=== PATIENT | female | born 1940 | race Caucasian/White ===

== ENCOUNTER 2024-01-27 06:08 | Emergency (ER) | payer MEDICARE, BC, SELFPAY ==
[2024-01-27 06:26] VITALS: PULSE 61; RESP 18; O2SAT 97
[2024-01-27 06:33] VITALS: BMI 28.3
[2024-01-27 06:39] VITALS: BP 139/91; PULSE 63; RESP 16; TEMP 36.7; O2SAT 95
--- NOTE | 2024-01-27 06:51 | PD.EDABDPN ---
ED Abdominal Pain RME/HPI General Chief Complaint: Abdominal Pain Stated complaint: Rash/ABD PAIN Time seen by provider: 01/27/24 06:44 Arrival date/time: 01/27/24 06:08 RME / HPI RME / HPI narrative: Patient is a 84 year old female presenting to the ED BIBA for reported abdominal pain x5 days. Patient also complains of nonspecific rash to her abdomen x5 days. Denies fevers, chills, nausea,vomiting, diarrhea, constipation, urinary symptoms. History includes hypertension. Related Data Home Medications ?Medication ?Instructions ?Recorded ?Confirmed gabapentin 100 mg capsule 100 mg PO TID 05/15/23 07/11/23 hydrocodone 5 mg-acetaminophen 325 1 tab PO BID PRN Pain (Scale Score 05/15/23 07/11/23 mg tablet 7-10) levothyroxine 75 mcg tablet 75 mcg PO QDAY 05/15/23 07/11/23 aspirin 81 mg tablet,delayed 81 mg PO DAILY 05/16/23 07/11/23 release clopidogrel 75 mg tablet 75 mg PO DAILY 05/16/23 07/11/23 ezetimibe 10 mg tablet (Zetia) 10 mg PO DAILY 05/16/23 07/11/23 carvedilol 3.125 mg tablet 3.125 mg PO QDAY 07/11/23 07/11/23 valsartan 40 mg tablet 40 mg PO QDAY 07/11/23 07/11/23 Allergies Allergy/AdvReac Type Severity Reaction Status Date / Time Penicillins Allergy Unknown Verified 07/11/23 11:35 sulfamethoxazole Allergy Unknown Verified 07/11/23 11:35 trimethoprim Allergy Unknown Verified 07/11/23 11:35 celecoxib AdvReac Intermediate Anxiety Verified 07/11/23 11:35 pregabalin AdvReac Intermediate Irritable Verified 07/11/23 11:35 Review of Systems Review of Systems Narrative Review of Systems: Gen: No fever, no chills, no weight loss EYES: No discharge, no visual changes, no pain HEENT: No ear pain, no congestion, no sore throat PULM: No shortness of breath, no cough, no congestion CV: No chest pain, no dyspnea on exertion, no palpitations GI: +pain. No nausea, no vomiting, no diarrhea,no constipation : No frequency, no urgency, no dysuria Musc/skel: No joint pain, no back pain Skin: + rash Psyc: No hallucinations, no depression Heme/Lymph: No easy bleeding or bruising tendencies Neuro: No weakness, no headache Past Medical History Past Medical History NEUROLOGIC: Positive Neurological Disorders and Peripheral Neuropathy CARDIAC: Positive Cardiac Disorders, Coronary Artery Disease, Hypercholesterolemia, Edema and Hypertension RESPIRATORY: Positive Asthma GASTROINTESTINAL: Positive Gastrointestinal Disorders, Gastroesophageal Reflux Disease and Obesity GENITOURINARY: Positive Genitourinary Disorders REPRODUCTIVE: Positive Breast Cancer MUSCULOSKELETAL: Positive Musculoskeletal Disorders, Arthritis, Rheumatoid Arthritis, Carpal Tunnel Syndrome and Fibromyalgia ENDOCRINE: Positive Endocrine Disorders and Hypothyroidism PSYCHO/SOCIAL: Positive Depression and Anxiety OTHER HISTORY: Positive Cancer and Breast Cancer Surgical History SURGICAL: Positive Thyroidectomy, Joint Replacement and Hysterectomy Social History SMOKING STATUS: Never smoker SUBSTANCE USE: does not use ED Exam Narrative Physical exam: GEN. APPEARANCE: The patient is alert awake oriented X-3 in minimal distress, lying down comfortably, does not look ill/toxic. Patient has good eye contact. Patient is cooperative. VITALS: All vitals were reviewed and the pulse ox is 95% on room air which is normal according to my interpretation. HEENT: Normocephalic, atraumatic. Pupils are equal and reactive. Oral mucosa is moist. Patent Nares NECK: Supple, nontender, no thyromegaly, no meningismus, no JVD, no step offs CHEST: Symmetrical, atraumatic, and with equal expansion , Nontender on palpation no deformity and no crepitus. CARDIOVASCULAR: Heart regular rhythm no murmur or gallop rub or extra beats. LUNGS: Clear to auscultation bilaterally with symmetrical chest rise. No laboring tachypnea or wheezing. No intercostal subcostal retraction. No rales and no rhonchi. ABDOMEN: Soft, flat, nontender to palpation, no guarding or rebound tenderness. There are no abnormal masses palpated. Active and normal bowel sounds. EXTREMITIES: Nontender. No edema. No cyanosis. Patient is able to move all 4 extremities well, with full ROM and good CSM. SKIN: patchy Rash on the right abdomen stretching onto the back, shingles. Warm and dry, no jaundice o MUSCULOSKELETAL: No lubar or midline bony tenderness. There is no CVA tenderness. No paraspinal muscle spasm or tenderness. NEURO: Patient is NUNES x 4, Cranial nerves II through XII grossly intact. There is no focal neurologic deficits noted. GCS is 15, PNS and [employer] appear grossly intact. PSYCHIATRIC: Patient is in normal mood and affect, cooperative, no SI or HI or hallucinations. Course Quality Measures none Vital Signs Vital signs: Vital Signs Temperature 98.0 F 01/27/24 06:39 Pulse Rate 63 01/27/24 06:39 Respiratory Rate 16 01/27/24 06:39 Blood Pressure 139/91 H 01/27/24 06:39 Pulse Oximetry (%) 95 01/27/24 06:39 Oxygen Delivery Method Room Air 01/27/24 06:39 Abdominal Pain MDM Patient data External records reviewed:: [facility] previous records and EMS form Clinical information provided by:: patient Social determinants that could affect healthcare access:: none Patient has the following chronic illnesses:: hypertension How is presenting disease/condition affected by chronic disease/condition?: uneffected by Evaluation data The following diagnostics were reviewed and interpreted by me:: other (specify) (no testing currently indicated.) Lab and/or radiology exams considered but not ordered:: Basic lab work Interpretation Summary: No testing currently indicated. Medications / Prescriptions Medications or Prescriptions considered but not ordered:: none Medication administrations:: see above Consultations Consultation(s) initiated? (list below): No Diagnosis Differential diagnosis abdominal pain: other (shingles) Most likely diagnosis given after review of the tests above:: shingles Admission Indicated Admission indicated?: not indicated Admission Request Was there a request for admission?: No Disposition Plan Disposition Plan: Discharge Discharge Attestation Discharge Attestation: The patient and all family members were given an opportunity to ask questions and understood the discharge instructions. Discharge instructions specifically effects, indications for sooner follow up or return to the emergency department, and the expected course of current diagnosis. Patient condition: Stable Discharge Plan Plan Patient Disposition: HOME (Self Care) Patient condition on transfer: Stable Prescriptions/Referrals Prescriptions/Med Rec: No Action valsartan 40 mg tablet 40 mg PO QDAY carvedilol 3.125 mg tablet 3.125 mg PO QDAY Rx Instructions: must administer with a meal/food hydrocodone-acetaminophen 5-325 mg Tablet 1 tab PO BID PRN (Reason: Pain (Scale Score 7-10)) levothyroxine 75 mcg Tablet 75 mcg PO QDAY gabapentin 100 mg Capsule 100 mg PO TID clopidogrel 75 mg tablet 75 mg PO DAILY Patient Comments: TAKE 1 TABLET BY MOUTH EVERY DAY aspirin 81 mg tablet,delayed release (DR/EC) 81 mg PO DAILY ezetimibe [Zetia] 10 mg Tablet 10 mg PO DAILY Problem List Clinical Impression: Acute herpes zoster neuropathy, Shingles rash Patient/Caregiver Discharge Instructions Education Materials: ED Shingles (Herpes Zoster) Print Language: Urdu Stand Alone Forms: Nilda Award Info., Patient Portal Info Letter
== END 2024-01-27 07:30 | disposition home or self-care (01) ==
LOC: SERX 07:41
PROVIDERS: Emergency Provider Emergency Medicine
DX: B02.29 Other postherpetic nervous system involvement (principal)
CPT/HCPCS: 99281

== ENCOUNTER → 2024-08-14 | Outpatient (CLI) | payer MEDICARE, SELFPAY ==
--- NOTE | 2024-08-14 12:06 | XR_ITS ---
Examination: Right knee 2 views Technique one AP lateral right knee 2 views Date and time: August 14, 2024 1213 hours INDICATIONS: Knee pain 3 years. FINDINGS: Severe osteopenia Advanced tricompartment osteoarthritis including severe narrowing medial joint space, [id number] No fracture Moderate knee effusion IMPRESSION: Advanced tricompartment osteoarthritis
== END | disposition home or self-care (01) ==
PROVIDERS: PCP Registered Nurse; Referring Provider Registered Nurse; Visit Provider Registered Nurse
DX: M17.11 Unilateral primary osteoarthritis, right knee (principal)
CPT/HCPCS: 73560

== ENCOUNTER → 2024-09-02 | Outpatient (CLI) | payer MEDICARE, BC, SELFPAY ==
--- NOTE | 2024-09-02 13:10 | XR_ITS ---
Examination: Venous duplex lower extremity sonogram, bilateral. Date and time of exam: September 02, 2024 1431 hours INDICATIONS: Bilateral leg filling and pain beginning several years ago Technique: Multiple sonographic images of the deep venous system have been obtained. B-mode/2-D grayscale imaging of vascular structures and Doppler spectral analysis (waveforms) and color performed Both legs are examined. Findings: Deep venous systems do not demonstrate abnormal echogenicity. All visualized deep veins exhibit compressibility. All visualized deep veins exhibit augmentation. Impression: Negative for deep vein thrombosis
== END | disposition home or self-care (01) ==
PROVIDERS: PCP Family Medicine; Referring Provider Internal Medicine; Visit Provider Internal Medicine
DX: M79.605 Pain in left leg (principal); M79.604 Pain in right leg
CPT/HCPCS: 93970

== ENCOUNTER → 2024-10-17 | Outpatient (CLI) | payer MEDICARE, BC, SELFPAY ==
--- NOTE | 2024-10-17 12:07 | XR_ITS ---
Examination: Ribs, right, with PA chest, 5 views Technique: Chest PA, RIBS AP, RPO, LPO, AP coned lower ribs 5 views Exam date and time: October 17, 2024 1357 hours INDICATIONS: Injury to the right chest one week ago with right rib pain Findings: Severe thoracic levoscoliosis Partial visualization thoracic lumbar transpedicular orthopedic hardware Surgical clips over the left chest No pneumothorax Severe osteopenia Reverse right shoulder arthroplasty No acute rib fractures IMPRESSION: No pneumothorax No acute right rib fractures
[2024-10-17 15:24] LABS: Collection Type, Urine Clean Catch
[2024-10-17 16:36] LABS: Bilirubin,Urine Negative (Negative); Blood,Urine Negative (Negative); Clarity,Urine Clear (Clear/Hazy); Color,Urine Yellow (Lt Yel-Yel); Glucose, Urine Negative (Negative); Ketones,Urine 1+ (Negative); Leukocyte Esterase,Urine Negative (Negative); Nitrite,Urine Negative (Negative); PH,Urine 7.0 (5.0-7.0); Protein,Urine 2+ (Neg - Trace); RBC,Urine 17 /hpf (0-3); Specific Gravity,Urine 1.027 (1.001-1.035); Squamous Epithelial Cell,Urine 1 /hpf (0-5); Urobilinogen,Urine Negative mg/dL (0.0-1.0); WBC,Urine 1 /hpf (0-5)
== END | disposition home or self-care (01) ==
LOC: SDIM 14:40 → SLDO 15:30
PROVIDERS: PCP Family Medicine; Referring Provider Family Medicine; Visit Provider Radiology Diagnostic Radiology
DX: R07.82 Intercostal pain (principal); R07.81 Pleurodynia; N39.0 Urinary tract infection, site not specified
CPT/HCPCS: 71101; 81001; 87086

== ENCOUNTER 2024-10-18 16:27 | Emergency (ER) | payer MEDICARE, BC, SELFPAY ==
--- NOTE | 2024-10-18 16:42 | PD.EDAMS ---
Altered Mental Status RME/HPI General Chief Complaint: Weakness Stated Complaint: WEAKNESS Time Seen by Provider: 10/18/24 16:46 Arrival date/time: 10/18/24 16:27 Limitations: no limitations RME / HPI RME / HPI narrative: DR. VIDYA JENKINS ED EVALUATION: 84-year-old female with history of aortic valve blockage, pending valve replacement surgery that was postponed due to a recent infection, and possible undiagnosed dementia, presents to the Emergency Department [facility] for altered behavior and generalized weakness. Family reports that at night the patient becomes combative and screams, and when they attempt to move her, she cries out in pain. They also describe episodes of unusual behavior, such as drinking from a bottle of Tylenol, and being awake and altered from 1 AM to 7 AM, with no memory of these events afterward. EMS reports hypertension on arrival with otherwise normal vitals. The patient takes gabapentin, Zyrtec, and amitriptyline. On evaluation, she stated, I?m tired of all this garbage, I want to go home ; but denies suicidal ideation. She denies any pain, dysuria, or other complaints. Related Data Home Medications ?Medication ?Instructions ?Recorded ?Confirmed gabapentin 100 mg capsule 100 mg PO TID 05/15/23 07/11/23 hydrocodone 5 mg-acetaminophen 325 1 tab PO BID PRN Pain (Scale Score 05/15/23 07/11/23 mg tablet 7-10) levothyroxine 75 mcg tablet 75 mcg PO QDAY 05/15/23 07/11/23 aspirin 81 mg tablet,delayed 81 mg PO DAILY 05/16/23 07/11/23 release clopidogrel 75 mg tablet 75 mg PO DAILY 05/16/23 07/11/23 ezetimibe 10 mg tablet (Zetia) 10 mg PO DAILY 05/16/23 07/11/23 carvedilol 3.125 mg tablet 3.125 mg PO QDAY 07/11/23 07/11/23 valsartan 40 mg tablet 40 mg PO QDAY 07/11/23 07/11/23 Allergies Allergy/AdvReac Type Severity Reaction Status Date / Time morphine Allergy Severe Agitated Verified 10/18/24 18:56 Penicillins Allergy Unknown Verified 10/18/24 18:56 sulfamethoxazole Allergy Unknown Verified 10/18/24 18:56 trimethoprim Allergy Unknown Verified 10/18/24 16:38 celecoxib AdvReac Intermediate Anxiety Verified 10/18/24 16:38 pregabalin AdvReac Intermediate Irritable Verified 10/18/24 16:38 Review of Systems Review of Systems Systems Reviewed: All systems reviewed, normal except as documented Past Medical History Past Medical History NEUROLOGIC: Positive Neurological Disorders and Peripheral Neuropathy CARDIAC: Positive Cardiac Disorders, Coronary Artery Disease, Hypercholesterolemia, Edema and Hypertension RESPIRATORY: Positive Asthma GASTROINTESTINAL: Positive Gastrointestinal Disorders, Gastroesophageal Reflux Disease and Obesity GENITOURINARY: Positive Genitourinary Disorders REPRODUCTIVE: Positive Breast Cancer MUSCULOSKELETAL: Positive Musculoskeletal Disorders, Arthritis, Rheumatoid Arthritis, Carpal Tunnel Syndrome and Fibromyalgia ENDOCRINE: Positive Endocrine Disorders and Hypothyroidism PSYCHO/SOCIAL: Positive Depression and Anxiety OTHER HISTORY: Positive Cancer and Breast Cancer Surgical History SURGICAL: Positive Thyroidectomy, Joint Replacement and Hysterectomy Social History SMOKING STATUS: Never smoker SUBSTANCE USE: does not use ALCOHOL: Never ED Exam General Limitations: Present no limitations General appearance: Present alert and in no apparent distress Head Head exam: Present atraumatic, normocephalic and normal inspection Eye Eye exam: Present normal appearance, PERRL and EOMI ENT ENT exam: Present normal exam, normal oropharynx and mucous membranes moist Neck Neck exam: Present normal inspection, full ROM and trachea midline Chest Chest inspection: Present normal inspection and symmetric chest wall rise Respiratory Respiratory exam: Present normal lung sounds bilaterally Cardiovascular Cardiovascular exam: Present regular rate, normal rhythm and normal heart sounds Abdominal Exam Abdominal exam: Present soft and normal bowel sounds Extremities Exam Extremities exam: Present normal inspection and full ROM Back Exam Back exam: Present normal inspection and full ROM Neurological Exam Neurological exam: Present alert, oriented X3 and CN II-XII intact Psychiatric Psychiatric exam: Present normal affect and normal mood Skin Skin exam: Present warm, dry, intact and normal color Course Course Course Narrative: Patient is an 84-year-old female who presented to the emergency department via EMS after family called for what sounds like episodes of sundowning. Per family the patient awakens every night at about 1 AM and is confused and anxious and performs strange tasks around the house. She is otherwise alert and oriented x 3. Patient has no medical complaints. Patient's exam is normal for elderly female. Patient appears somewhat perturbed. Patient remained stable throughout her course in the emergency department and care was turned over to Dr. Gao at 6 PM pending results of the workup. Quality Measures none Orders Category Date Time Status EKG (ED ONLY) *Do not use* NOW Care 10/18/24 16:47 Completed Insert IV NOW Care 10/18/24 16:[address] head/brain wo con Stat Exams 10/18/24 16:48 Completed EKG (ED Only) Stat Exams 10/18/24 16:46 Draft XR chest 1V portable Stat Exams 10/18/24 16:48 Completed Alcohol, Blood Medical Stat Lab 10/18/24 17:04 Completed Ammonia Stat Lab 10/18/24 17:04 Completed Blood Culture (Lab) Stat Lab 10/18/24 17:09 Received CBC Stat Lab 10/18/24 17:04 Completed Comprehensive Metabolic Panel Stat Lab 10/18/24 17:04 Completed Drug Screen,Urine Stat Lab 10/18/24 17:46 Completed Magnesium Stat Lab 10/18/24 17:04 Completed Prothrombin Time with INR Stat Lab 10/18/24 17:04 Completed Salicylate Stat Lab 10/18/24 17:04 Completed Thyroid Stimulating Hormone Stat Lab 10/18/24 17:04 Completed Troponin I Stat Lab 10/18/24 17:04 Completed Urinalysis, C/S if Indicated Stat Lab 10/18/24 17:46 Completed Acetaminophen Tab [Tylenol ES Tab] Med 10/18/24 17:43 Discontinued 1,000 mg PO X1 ONE HYDROcodone*/APAP 5/325 [[place] 5/325] Med 10/18/24 19:48 Discontinued 1 tab PO X1 ONE Morphine Inj Med 10/18/24 18:36 Discontinued 2 mg IVP X1 ONE Vital Signs Vital signs: Vital Signs Temperature 98.2 F 10/18/24 16:48 Pulse Rate 68 10/18/24 16:48 Respiratory Rate 18 10/18/24 16:48 Blood Pressure 177/78 H 10/18/24 16:48 Pulse Oximetry (%) 95 10/18/24 16:48 Oxygen Delivery Method Room Air 10/18/24 16:48 Altered Mental Status MDM Narrative MDM Narrative:: I, Katiuska Pascal am scribing for and in the presence of Dr. Gonzalez. Patient data External records reviewed:: [facility] previous records and EMS form Clinical information provided by:: patient, EMS and family Social determinants that could affect healthcare access:: none Patient has the following chronic illnesses:: aortic valve blockage, pending valve replacement surgery that was postponed due to a recent infection, and possible undiagnosed dementia How is presenting disease/condition affected by chronic disease/condition?: exacerbated by Evaluation data The following diagnostics were reviewed and interpreted by me:: lab results, radiology exam(s) and EKG tracing(s) Lab and/or radiology exams considered but not ordered:: none Interpretation Summary: Pending at sign out. Medications / Prescriptions Medications or Prescriptions considered but not ordered:: none Medication administrations:: Medication Administration History Discontinued Medications Acetaminophen (Acetaminophen 500 Mg Tablet) 1,000 mg PO X1 ONE Stop: 10/18/24 17:44 Last Admin: 10/18/24 17:52 Dose: 1,000 mg Documented By: CHAVEZ Hydrocodone Bitart/Acetaminophen (Hydrocodone/Apap 5/325 Tablet) 1 tab PO X1 ONE Stop: 10/18/24 19:49 Last Admin: 10/18/24 20:24 Dose: 1 tab Documented By: SWAPNA Morphine Sulfate (Morphine Sulf Inj 10 Mg/Ml Vial) 2 mg IVP X1 ONE Stop: 10/18/24 18:37 Last Admin: 10/18/24 18:57 Dose: Not Given Documented By: CHAVEZ Non-Admin Reason: Allergy Comments: NOT GIVEN PATIENT IS ALLERGIC see above if any Consultations Consultation(s) initiated? (list below): No Diagnosis Differential diagnosis altered mental status: other (Delirium, dementia with behavioral disturbance, and metabolic or medication-induced encephalopathy.) Most likely diagnosis given after review of the tests above:: No official diagnoses at this time, still pending diagnostic tests. Patient signout to the twisting department end finder provider. Admission Indicated Admission indicated?: not indicated Explain why admission is indicated or not indicated:: No final disposition plan at this time, still pending diagnostic tests. Patient signout to the twisting department end finder provider. Admission Request Was there a request for admission?: No Disposition Plan Disposition Plan: other (specify) (Patient signed out to Dr. Gao, pending CXR, EKG, head CT, labs, and final disposition. ) Discharge Plan Plan Patient Disposition: HOME (Self Care) Prescriptions/Referrals Prescriptions/Med Rec: No Action valsartan 40 mg tablet 40 mg PO QDAY carvedilol 3.125 mg tablet 3.125 mg PO QDAY Rx Instructions: must administer with a meal/food hydrocodone-acetaminophen 5-325 mg Tablet 1 tab PO BID PRN (Reason: Pain (Scale Score 7-10)) levothyroxine 75 mcg Tablet 75 mcg PO QDAY gabapentin 100 mg Capsule 100 mg PO TID clopidogrel 75 mg tablet 75 mg PO DAILY Patient Comments: TAKE 1 TABLET BY MOUTH EVERY DAY aspirin 81 mg tablet,delayed release (DR/EC) 81 mg PO DAILY ezetimibe [Zetia] 10 mg Tablet 10 mg PO DAILY Referrals: No Primary/Family,Physician [Primary Care Provider] - In 1 week Problem List Clinical Impression: AMS (altered mental status) Patient/Caregiver Discharge Instructions Additional Instructions: Patient may be suffering from early signs of dementia. Follow-up with the patient's doctor for further treatment and evaluation. There is no sign of a urinary tract infection. Print Language: British Stand Alone Forms: Nilda Award Info., Patient Portal Info Letter
--- NOTE | 2024-10-18 16:46 | EKG_ITS ---
[facility] Test Date: 2024-10-18 Pat Name: JEREMIAH ANN Department: Room: - Gender: Female Form Building Supervisor: : 1940 Requested By: Claus Zelaya Order Number: [id number] Reading MD: Claus Zelaya Measurements Intervals [place] Rate: 65 P: 46 GA: 158 QRS: -2 QRSD: 108 T: 29 QT: 425 QTc: 444 Interpretive Statements SINUS RHYTHM POSSIBLE LEFT VENTRICULAR HYPERTROPHY [VOLTAGE CRITERIA PLUS LAE OR QRS WIDENING] Compared to ECG 05/20/2023 17:19:09 No significant changes /store/S0/[id number]/[id number].pdf
[2024-10-18 16:48] VITALS: BP 177/78; PULSE 68; RESP 18; TEMP 36.8; O2SAT 95
--- NOTE | 2024-10-18 16:48 | XR_ITS ---
Examination: CT brain head without contrast. 2-D sagittal coronal reconstructions Date and time of exam:October 18, 2024, 1759 hours, comparison May 15, 2023. INDICATIONS: Altered mental status today CTDI: vol (mGy):44.9. DLP: (mGycm):879 Technique: Multiple CT axial sections of the brain have been obtained, 5 mm slice thickness. Contrast has not been administered. 2-D sagittal, coronal reconstructions have been obtained Low dose protocols were performed. One or more of the following dose reduction techniques were used; automated exposure control, adjustment of the mA and/or KV according to patient size, use of iterative reconstruction technique. Findings: No significant ventricular enlargement. Intra-axial or extra-axial hemorrhage density is not seen. No mass effect or midline shift Basal cisterns are not remarkable. Fourth ventricle is midline. Cranial vault intact. Impression: Negative for acute hemorrhage, mass effect or midline shift Advise clinical correlation and follow up accordingly.
--- NOTE | 2024-10-18 16:48 | XR_ITS ---
Examination: AP chest single view TECHNIQUE: AP portable semiupright chest single view. Date and time: October 18, 2024, 1747 hours, comparison October 17, 2024 INDICATIONS: Weakness altered mental status today. FINDINGS: No significant cardiac enlargement. No aspiration pneumonia. Prominent osteopenia. Left axillary surgical clips. Bilateral reverse shoulder arthroplasties. IMPRESSION: No aspiration pneumonia No pulmonary edema
[2024-10-18 17:47] LABS: Ammonia < 10 uMol/L (11-32)
[2024-10-18] MEDS: ACETAMINOPHEN 500 MG TABLET 1000 MG PO (17:52)
[2024-10-18 17:58] LABS: Collection Type, Urine Catheter; Squamous Epithelial Cell,Urine 0 /hpf (0-5)
[2024-10-18 18:04] LABS: Basophils # (Auto) 0.0 Thou/mm3 (0.0-0.2); Basophils % (Auto) 0 % (0-2.5); Eosinophils # (Auto) 0.2 Thou/mm3 (0.0-0.5); Eosinophils % (Auto) 2 % (0-10); Hematocrit 32.1 % (36.0-46.0); Hemoglobin 10.2 g/dL (12.0-16.0); Immature Granulocytes Auto 0.04 Thou/mm3 (0.00-0.00); Lymphocytes # (Auto) 1.5 Thou/mm3 (1.0-4.8); Lymphocytes % (Auto) 17 % (10-50); Mean Corpuscular HGB Conc 31.8 g/dl (31.0-37.0); Mean Corpuscular Hemoglobin 28.6 pg (25.0-35.0); Mean Corpuscular Volume 90 fL (80-100); Monocytes # (Auto) 1.1 Thou/mm3 (0.0-0.8); Monocytes % (Auto) 13 % (0-12); Neutrophils # (Auto) 5.9 Thou/mm3 (1.8-7.7); Neutrophils % (Auto) 68 % (37-80); Nucleated Red Blood Cell # 0.00 Thou/mm3 (0.00-0.00); Nucleated Red Blood Cell % 0 /100 WBC (0); Platelet Count 280 Thou/mm3 (140-440); RDW Standard Deviation 47.5 fL (36.4-46.3); Red Blood Count 3.57 Miln/mm3 (4.00-5.20); White Blood Count 8.8 Thou/mm3 (3.6-11.0)
[2024-10-18 18:22] VITALS: BP 204/101; PULSE 67; RESP 18; TEMP 36.7; O2SAT 95
[2024-10-18 18:24] LABS: Alanine Aminotransferase 35 U/L (10-49); Albumin, Serum 4.1 gm/dL (3.4-4.8); Albumin/Globulin Ratio 2.0 (1.2-2.2); Alcohol, Blood Medical < 3.0 mg/dL (0-10.0); Alkaline Phosphatase 98 U/L (46-116); Anion Gap 11 (7-16); Aspartate Amino Transferase 31 U/L (0-34); BUN/Creatinine Ratio 33 Ratio (12-20); Bilirubin,Total 0.4 mg/dL (0.3-1.2); Blood Urea Nitrogen 26 mg/dL (9-23); Calcium 9.9 mg/dL (8.3-10.6); Calcium (Corrected) 9.9 mg/dL (8.5-10.1); Carbon Dioxide 28.4 mMol/L (20.0-31.0); Chloride 101 mMol/L (98-107); Creatinine (Component) 0.8 mg/dL (0.6-1.3); Globulin 2.1 gm/dL (2.3-3.5); Glucose 137 mg/dL (74-106); Magnesium 2.2 mg/dL (1.6-2.6); Osmolality,Calculated 286 (275-295); Potassium 4.0 mMol/L (3.4-5.1); Salicylate < 3.0 mg/dL; Sodium 140 mMol/L (136-145); Thyroid Stimulating Hormone 1.90 uIU/mL (0.55-4.78); Total Protein 6.2 gm/dL (5.7-8.2); Troponin I < 0.020 ng/mL (0.0-0.045); eGFR > 60 See Note
--- NOTE | 2024-10-18 18:28 | PD.EDADDENDU ---
Emergency Room Addendum <Ally Manzanares - Last Filed: 10/18/24 19:20> Addendum Narrative: 1800: Care assumed from Dr. Gonzalez (emergency physician). Past medical, surgical, social and family history reviewed. Vitals and home medications reviewed. Results and treatment plan discussed. I will assume the care of the patient at this time and will follow the patient, pending labs and head/brain CT. The following addendum documentation note is intended to reflect any pending information, findings, or radiology results not included in the patient?s initial chart by the previous shift scribe. RADIOLOGY Head/Brain CT: Findings: No significant ventricular enlargement. Intra-axial or extra-axial hemorrhage density is not seen. No mass effect or midline shift Basal cisterns are not remarkable. Fourth ventricle is midline. Cranial vault intact. Impression: Negative for acute hemorrhage, mass effect or midline shift. Advise clinical correlation and follow up accordingly. <Tee Fernandez DO [place] - Last Filed: 10/18/24 20:24> Addendum Narrative: 1800: Care assumed from Dr. Gonzalez (emergency physician). Past medical, surgical, social and family history reviewed. Vitals and home medications reviewed. Results and treatment plan discussed. I will assume the care of the patient at this time and will follow the patient, pending labs and head/brain CT. The following addendum documentation note is intended to reflect any pending information, findings, or radiology results not included in the patient?s initial chart by the previous shift scribe. RADIOLOGY Head/Brain CT: Findings: No significant ventricular enlargement. Intra-axial or extra-axial hemorrhage density is not seen. No mass effect or midline shift Basal cisterns are not remarkable. Fourth ventricle is midline. Cranial vault intact. Impression: Negative for acute hemorrhage, mass effect or midline shift. Advise clinical correlation and follow up accordingly. I interpreted and evaluated the labs. CAT scan of the brain was negative. Had a long discussion with the patient's daughter. 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 I believe the patient may be suffering from early signs of dementia. She does have a neurologist. Family will follow-up with neurology to seek appropriate treatment. Patient is stable for discharge. Patient does not have a urinary tract infection.
[2024-10-18 18:33] LABS: INR 1.0 (0.9-1.3); Prothrombin Time 11.4 Seconds (9.0-12.2)
[2024-10-18 18:36] VITALS: BMI 28.9
[2024-10-18 18:44] VITALS: PULSE 80; RESP 19; O2SAT 98
[2024-10-18 18:54] LABS: Amphetamine/Methamp Scrn,U Negative (Negative); Barbiturate Screen,Urine Negative (Negative); Benzodiazepines Screen,Urine Negative (Negative); Benzoylecgonine Screen, Ur Negative (Negative); Fentanyl Screen,Urine Negative (Negative); Opiate Screen,Urine Positive (Negative); THC Screen,Urine Negative (Negative)
[2024-10-18 18:58] VITALS: BP 186/91; PULSE 70; RESP 19; O2SAT 96
[2024-10-18 19:11] LABS: Bilirubin,Urine Negative (Negative); Blood,Urine Negative (Negative); Clarity,Urine Clear (Clear/Hazy); Color,Urine Yellow (Lt Yel-Yel); Culture Indicated,Urine Not Indicated; Glucose, Urine Negative (Negative); Ketones,Urine Negative (Negative); Leukocyte Esterase,Urine Negative (Negative); Nitrite,Urine Negative (Negative); PH,Urine 6.5 (5.0-7.0); Protein,Urine 2+ (Neg - Trace); RBC,Urine 20 /hpf (0-3); Specific Gravity,Urine 1.033 (1.001-1.035); Urobilinogen,Urine Negative mg/dL (0.0-1.0); WBC,Urine 1 /hpf (0-5)
--- NOTE | 2024-10-18 19:37 | PC.NURSE ---
PT WAS CHANGED AND CLEANED AFTER BEING SOILED
[2024-10-18] MEDS: HYDROcodone/APAP 5/325 TABLET 1 TAB PO (20:24)
[2024-10-18 20:25] VITALS: BP 186/91; PULSE 72; RESP 20; TEMP 36.9; O2SAT 97
== END 2024-10-18 20:59 | disposition home or self-care (01) ==
PROVIDERS: Emergency Provider Emergency Medicine
DX: R41.82 Altered mental status, unspecified (principal); R53.1 Weakness; I10 Essential (primary) hypertension
CPT/HCPCS: 36415; 70450; 71045; 80053; 80307; 80320; 80329; 81001; 82140; 83735; 84443; 84484; 85025; 85610; 87040; 93005; 99283; A9270; G0480

== ENCOUNTER → 2024-10-24 | Outpatient (CLI) | payer MEDICARE, BC, SELFPAY ==
--- NOTE | 2024-10-24 10:45 | XR_ITS ---
Examination: Lumbar spine 3 views Technique one AP lateral coned lateral lower lumbar spine 3 views Date and time: 22,025 1111 hrs., Comparison October 08, 2018 Indications: Low back pain several years, history lumbar spine surgery. Findings: Again noted transpedicular lumbar stabilization T11-L5 Stable alignment Severe osteopenia No acute fracture Advanced disc narrowing L5-S1 Impression: Again noted transpedicular lumbar stabilization T11-L5 with stable alignment Severe osteopenia
== END | disposition home or self-care (01) ==
LOC: SDIM 10:23
PROVIDERS: PCP Family Medicine; Referring Provider Orthopaedic Surgery; Visit Provider Orthopaedic Surgery
DX: M85.88 Other specified disorders of bone density and structure, other site (principal)
CPT/HCPCS: 72100

== ENCOUNTER → 2024-12-13 | Outpatient (CLI) | payer MEDICARE, BC, SELFPAY ==
--- NOTE | 2024-12-13 10:56 | XR_ITS ---
Examination: Abdomen sonogram, complete Date and time of exam: December 13, 2024, 11:00 a.m. INDICATIONS: Right upper abdominal pain beginning 1 week ago. Technique: Multiple real-time grayscale transabdominal sonographic images of the abdomen have been obtained. Findings: Normal gallbladder. Normal common bile duct 0.4 cm Pancreatic head 2.2 cm Liver 17.1 cm Multiple hyperechoic liver lesions, the largest in the left lobe 15 x 14 mm right lobe 28 x 25 mm Normal hepatopetal portal venous flow Patent IVC Right kidney 10.6 cm renal cortex 1.2 cm Left kidney 7.9 cm renal cortex 1.4 cm Mild to moderate bilateral renal parenchymal scar formation Spleen 10.1 cm IMPRESSION: Normal gallbladder Hepatomegaly with multiple liver lesions, recommend MRI abdomen liver follow-up to confirm hepatic metastases Small left kidney Bilateral renal cortical thinning with renal scar formation, no hydronephrosis
== END | disposition home or self-care (01) ==
PROVIDERS: PCP Physician Assistant; Referring Provider Physician Assistant; Visit Provider Physician Assistant
DX: R16.0 Hepatomegaly, not elsewhere classified (principal); K76.89 Other specified diseases of liver; N28.89 Other specified disorders of kidney and ureter
CPT/HCPCS: 76700